=== PATIENT | female | born 1965 | race Caucasian/White ===

== ENCOUNTER 2018-07-20 09:02 | Emergency (ER) | payer BC ==
--- NOTE | 2018-07-20 11:02 | RAD REPORT ---
EXAM DESCRIPTION: RAD - Knee Right 3 View - 07/20/2018 10:53 am CLINICAL HISTORY: Hyperextension injury, knee pain COMPARISON: None. FINDINGS: No fracture, dislocation or periosteal reaction.Moderate joint effusion is present. No fat fluid level identifiable. No joint space narrowing. No foreign body or other soft tissue abnormality . IMPRESSION: Moderate joint effusion with no acute bone finding. Clinical concerns for internal derangement or occult bony injury could be further assessed with MR im aging.
--- NOTE | 2018-07-20 11:34 | ER ---
Nurse's Notes [facility] Name: Joanne Lackey Age: 53 yrs Sex: Female : 1965 Arrival Date: 07/20/2018 Time: 09:09 Bed 11 Private MD: None, None Diagnosis: Pain in right knee Presentation: 07/20 09:16 Presenting complaint: Patient states: Friday i hopped on my R leg and my R knee hyper hj extended; i noticed its swollen; took ibuprofen 800 mg around 7 am today;. Transition of care: patient was not received from another setting of care. Onset of symptoms was July 20, 2018. Risk Assessment: Do you want to hurt yourself or someone else? Patient reports no desire to harm self or others. Initial Sepsis Screen: Does the patient meet any 2 criteria? No. Patient's initial sepsis screen is negative. Does the patient have a suspected source of infection? No. Patient's initial sepsis screen is negative. Care prior to arrival: None. 09:16 Method Of Arrival: Ambulatory 09:16 Acuity: SERAFIN 4 hj Triage Assessment: 09:21 General: Appears in no apparent distress. uncomfortable, Behavior is calm, cooperative, hj appropriate for age. Pain: Complains of pain in right knee. CPAS: 09:21 LMP N/A - Hysterectomy hj Historical: - Allergies: 09:20 PENICILLINS; hj 09:20 Sulfa (Sulfonamide Antibiotics); hj - Home Meds: 09:20 primidone 50 mg Oral tab 1 tabs daily [Active]; glycopyrrolate 2 mg oral tab daily hj [Active]; Celexa 40 mg Oral tab 1 tab once daily [Active]; - PMHx: 09:20 Anxiety; hj - PSHx: 09:20 Hernia repair; Cholecystectomy; hj 09:21 Hysterectomy; hj - Immunization history:: Adult Immunizations up to date. - Social history:: Smoking status: . - Ebola Screening: : Patient negative for fever greater than or equal to 101.5 degrees Fahrenheit, and additional compatible Ebola Virus Disease symptoms Patient denies exposure to infectious person Patient denies travel to an Ebola-affected area in the 21 days before illness onset. Screenin:21 Abuse screen: Denies threats or abuse. Denies injuries from another. Nutritional hj screening: No deficits noted. Tuberculosis screening: No symptoms or risk factors identified. Fall Risk None identified. Assessment: 09:35 General: Appears in no apparent distress. Behavior is calm, cooperative. Pain: iw Complains of pain in right knee. Neuro: Level of Consciousness is awake, alert, obeys commands, Oriented to person, place, time, situation, Moves all extremities. Cardiovascular: Patient's skin is warm and dry. Respiratory: Respiratory effort is even, unlabored. Derm: Skin is intact, is healthy with good turgor. Musculoskeletal: Reports pain in right knee. Vital Signs: 09:21 BP 120 / 65; Pulse 84; Resp 18; Temp 97.8(TE); Pulse Ox 100% on R/A; Weight 86.18 kg; hj Height 5 ft. 6 in. (167.64 cm); Pain 0/10; 09:21 Body Mass Index 30.67 (86.18 kg, 167.64 cm) ED Course: 09:09 Patient arrived in ED. sb2 09:09 None, None is Private Physician. sb2 09:17 Triage completed. hj 09:20 Jasmine Joseph FNP-C is PHCP. kb 09:20 Sumit Young MD is Attending Physician. kb 09:21 Arm band placed on right wrist. hj 09:23 Patient has correct armband on for positive identification. Bed in low position. Call hj light in reach. Side rails up X 1. Adult w/ patient. 09:35 aYsmine Urbina, RN is Primary Nurse. iw 09:35 No provider procedures requiring assistance completed. Patient did not have IV access iw during this emergency room visit. 10:51 X-ray completed. Portable x-ray completed in exam room. Patient tolerated procedure ls3 well. 10:54 Knee Right 3 View XRAY In Process Unspecified. EDMS Administered Medications: No medications were administered Outcome: 11:33 Discharge ordered by . kb 12:02 Discharged to home ambulatory. iw 12:02 Condition: good 12:02 Discharge instructions given to patient, Instructed on discharge instructions, follow up and referral plans. medication usage, Demonstrated understanding of instructions, follow-up care, medications, Prescriptions given X 1. 12:03 Patient left the ED. iw Signatures: Dispatcher [employer] EDMS Jasmine Joseph FNP-C FNP-Ckb Carlitos, Yasmine, Eric Hamm RN, RN RN hj Billeau, Sheri sb2 Shana Hogue ls3 Corrections: (The following items were deleted from the chart) 09:23 09:21 Pulse 84bpm; Resp 18bpm; Pulse Ox 100% RA; Temp 97.8F Temporal; 86.18 kg; Height hj 5 ft. 6 in.; BMI: 30.6; Pain 0/10; hj 09:24 09:21 Pulse 84bpm; Resp 18bpm; Pulse Ox 100% RA; Temp 97.8F Temporal; 86.18 kg; Height hj 5 ft. 6 in.; BMI: 30.6; Pain 0/10; hj
--- NOTE | 2018-07-20 11:34 | EDPHYS ---
Physician Documentation [facility] Name: Joanne Lackey Age: 53 yrs Sex: Female : 1965 Arrival Date: 07/20/2018 Time: 09:09 Bed 11 Private MD: None, None ED Physician Sumit Young HPI: 07/20 11:27 This 53 yrs old Female presents to ER via Ambulatory with complaints of Knee kb Pain. 11:27 The patient presents with an injury, pain, swelling, tenderness. The complaints affect kb the right knee. Onset: The symptoms/episode began/occurred 3 day(s) ago. Modifying factors: The symptoms are alleviated by nothing. the symptoms are aggravated by movement, weight bearing. Associated signs and symptoms: Pertinent positives: swelling, Pertinent negatives calf tenderness, fever, nausea, numbness, rash, tingling, vomiting, warmth, weakness. Treatment prior to arrival includes: no previous treatment. Severity of symptoms: At their worst the symptoms were mild, in the emergency department the symptoms are unchanged. The patient has not experienced similar symptoms in the past. The patient has not recently seen a physician. 11:28 Context: resulted from hyperextention, the patient can fully bear weight, the patient kb is able to ambulate. 11:29 Pt reports knee pain and also has had sores on her back that started as mosquito bites, kb but she scratched them and broke the skin. "I wanted to see if I needed an antibiotic.". 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 - Social history:: Smoking status: . - Ebola Screening: : Patient negative for fever greater than or equal to 101.5 degrees Fahrenheit, and additional compatible Ebola Virus Disease symptoms Patient denies exposure to infectious person Patient denies travel to an Ebola-affected area in the 21 days before illness onset. ROS: 11:25 Constitutional: Negative for fever, chills, and weight loss, Cardiovascular: Negative kb for chest pain, palpitations, and edema, Respiratory: Negative for shortness of breath, cough, wheezing, and pleuritic chest pain, Abdomen/GI: Negative for abdominal pain, nausea, vomiting, diarrhea, and constipation, Back: Negative for injury and pain, Neuro: Negative for headache, weakness, numbness, tingling, and seizure. 11:25 MS/extremity: Positive for pain, of the right knee. 11:25 Skin: Positive for abrasion(s), of the left scapular area and right scapular area. Exam: 11:25 Constitutional: This is a well developed, well nourished patient who is awake, alert, kb and in no acute distress. Head/Face: Normocephalic, atraumatic. Chest/axilla: Normal chest wall appearance and motion. Nontender with no deformity. No lesions are appreciated. Cardiovascular: Regular rate and rhythm with a normal S1 and S2. No gallops, murmurs, or rubs. Normal PMI, no JVD. No pulse deficits. Respiratory: Lungs have equal breath sounds bilaterally, clear to auscultation and percussion. No rales, rhonchi or wheezes noted. No increased work of breathing, no retractions or nasal flaring. Abdomen/GI: Soft, non-tender, with normal bowel sounds. No distension or tympany. No guarding or rebound. No evidence of tenderness throughout. Neuro: Awake and alert, GCS 15, oriented to person, place, time, and situation. Cranial nerves II-XII grossly intact. Motor strength 5/5 in all extremities. Sensory grossly intact. Cerebellar exam normal. Normal gait. 11:25 Skin: broken skin from scratching insect bites to upper back. Vital Signs: 09:21 BP 120 / 65; Pulse 84; Resp 18; Temp 97.8(TE); Pulse Ox 100% on R/A; Weight 86.18 kg; hj Height 5 ft. 6 in. (167.64 cm); Pain 0/10; 09:21 Body Mass Index 30.67 (86.18 kg, 167.64 cm) hj MDM: 09:33 Patient medically screened. kb 11:24 Data reviewed: vital signs, nurses notes. Data interpreted: Pulse oximetry: on room air kb is 100 %. Interpretation: normal. Counseling: I had a detailed discussion with the patient and/or guardian regarding: the historical points, exam findings, and any diagnostic results supporting the discharge/admit diagnosis, radiology results, the need for outpatient follow up, a orthopedic surgeon, to return to the emergency department if symptoms worsen or persist or if there are any questions or concerns that arise at home. 07/20 09:20 Order name: Knee Right 3 View XRAY; Complete Time: 11:09 kb 07/20 11:12 Order name: Knee Immobilizer; Complete Time: 12:03 kb 07/20 11:12 Order name: Crutches; Complete Time: 12:03 kb Administered Medications: No medications were administered Disposition: 16:59 Co-signature as Attending Physician, Sumit Young MD. rn Disposition: 07/20/18 11:33 Discharged to Home. Impression: Pain in right knee. - Condition is Stable. - Discharge Instructions: Knee Pain, [id number]. - Prescriptions for Diclofenac Sodium 75 mg Oral Tablet, Delayed Release (E.C.) - take 1 tablet by ORAL route 2 times per day As needed; 30 tablet. - Medication Reconciliation Form, Thank You Letter, Antibiotic Education, Prescription Opioid Use form. - Follow up: Emergency Department; When: As needed; Reason: Worsening of condition. Follow up: Private Physician; When: 2 - 3 days; Reason: Recheck today's complaints, Continuance of care, Re-evaluation by your physician. Signatures: Dispatcher [employer] Jasmine Klein, BULB GRADER-C BULB GRADER-Ckb Yasmine Urbina RN RN iw Nieto, Roman, MD MD rn Joaquin, Henry, RN RN Corrections: (The following items were deleted from the chart) 12:03 11:33 07/20/2018 11:33 Discharged to Home. Impression: Pain in right knee. Condition is iw Stable. Forms are Medication Reconciliation Form, Thank You Letter, Antibiotic Education, Prescription Opioid Use. Follow up: Emergency Department; When: As needed; Reason: Worsening of condition. Follow up: Private Physician; When: 2 - 3 days; Reason: Recheck today's complaints, Continuance of care, Re-evaluation by your physician. kb
== END 2018-07-20 12:03 | disposition home or self-care (01) ==
LOC: ER 09:02
DX: M25.561 Pain in right knee (principal); F41.9 Anxiety disorder, unspecified; Z88.0 Allergy status to penicillin; Z88.2 Allergy status to sulfonamides
CPT/HCPCS: 99283